=== PATIENT | male | born 1995 | race Two or more races ===

== ENCOUNTER → 2024-10-02 | Day surgery (SDC) | payer MEDICAID, SELFPAY ==
--- NOTE | 2024-09-29 06:45 | EKG_ITS ---
[facility] Test Date: 2024-09-29 Pat Name: WALTER LOBATO Department: Room: - Gender: Male Chief Clinical Dietitian: DUANE : 1995 Requested By: Albaro Headley Order Number: [id number] Reading MD: Albaro Headley Measurements Intervals [place] Rate: 95 P: 19 MI: 165 QRS: 51 QRSD: 94 T: 3 QT: 332 QTc: 417 Interpretive Statements SINUS RHYTHM WITH OCCASIONAL SUPRAVENTRICULAR PREMATURE COMPLEXES WARNING: DATA QUALITY MAY AFFECT INTERPRETATION No previous ECG available for comparison /store/S0/[id number]
[2024-09-29 09:00] VITALS: BMI 37.4
[2024-09-29 09:25] LABS: Collection Type, Urine Clean Catch; Squamous Epithelial Cell,Urine 0 /hpf (0-5)
[2024-09-29 10:04] LABS: Bilirubin,Urine Negative (Negative); Blood,Urine Trace (Negative); Clarity,Urine Clear (Clear/Hazy); Color,Urine Lt-Yellow (Lt Yel-Yel); Glucose, Urine Negative (Negative); Ketones,Urine Negative (Negative); Leukocyte Esterase,Urine Negative (Negative); Nitrite,Urine Negative (Negative); PH,Urine 5.5 (5.0-7.0); Protein,Urine Negative (Neg - Trace); RBC,Urine 2 /hpf (0-3); Urobilinogen,Urine Negative mg/dL (0.0-1.0); WBC,Urine 1 /hpf (0-5)
[2024-09-29 10:07] LABS: Basophils % (Auto) 0 % (0-2.5); Eosinophils # (Auto) 0.2 Thou/mm3 (0.0-0.5); Eosinophils % (Auto) 2 % (0-10); Hematocrit 46.3 % (41.0-53.0); Hemoglobin 16.3 g/dL (13.5-16.0); Immature Granulocytes % (Auto) 1 % (0-0); Immature Granulocytes Auto 0.05 Thou/mm3 (0.00-0.00); Lymphocytes # (Auto) 3.1 Thou/mm3 (1.0-4.8); Lymphocytes % (Auto) 30 % (10-50); Mean Corpuscular HGB Conc 35.2 g/dl (31.0-37.0); Mean Corpuscular Hemoglobin 29.8 pg (25.0-35.0); Mean Corpuscular Volume 85 fL (80-100); Monocytes % (Auto) 9 % (0-12); Neutrophils % (Auto) 59 % (37-80); Nucleated Red Blood Cell % 0 /100 WBC (0); Platelet Count 342 Thou/mm3 (140-440); RDW Standard Deviation 36.4 fL (35.1-43.9); Red Blood Count 5.47 Miln/mm3 (4.50-5.90); White Blood Count 10.3 Thou/mm3 (3.8-10.6)
[2024-09-29 10:14] LABS: Alanine Aminotransferase 28 U/L (10-49); Albumin, Serum 4.6 gm/dL (3.5-5.0); Albumin/Globulin Ratio 1.4 (1.2-2.2); Alkaline Phosphatase 113 U/L (46-116); Anion Gap 10 (7-16); Aspartate Amino Transferase 19 U/L (0-34); BUN/Creatinine Ratio 17 Ratio (12-20); Bilirubin,Total 0.7 mg/dL (0.3-1.2); Blood Urea Nitrogen 17 mg/dL (9-23); Calcium 10.2 mg/dL (8.3-10.6); Calcium (Corrected) 10.2 mg/dL (8.5-10.1); Carbon Dioxide 26.3 mMol/L (20.0-31.0); Chloride 102 mMol/L (98-107); Estimated Creatinine Clearance 146.1 mL/min (>60); Globulin 3.2 gm/dL (2.3-3.5); Glucose 153 mg/dL (74-106); Osmolality,Calculated 280 (275-295); Partial Thromboplastin Time 27.2 Seconds (22.0-36.0); Potassium 4.3 mMol/L (3.4-5.1); Prothrombin Time 10.9 Seconds (9.0-12.2); Sodium 138 mMol/L (136-145); Total Protein 7.8 gm/dL (5.7-8.2); eGFR > 60 See Note
[2024-10-02] VITALS (8 sets, daily range): BP systolic 131–155; BP diastolic 86–103; PULSE 85–101; RESP 13–21; TEMP 36.6–36.7; O2SAT 95–98; BMI 34.9
--- NOTE | 2024-10-02 11:01 | SUR.PREOP ---
Patient expressed gratitude for prayer before his procedure.
--- NOTE | 2024-10-02 12:16 | SUR.PHASEII ---
Pt. arrived to recovery via sylvesterrvikram, AAOx3, no c/o pain or nausea at this time, VSS, dressing to medial upper back CDI, no active bleeding or redness noted, blood glucose 192, report received from Lora REDDY and Dr. Dove.
--- NOTE | 2024-10-02 12:34 | SUR.PHASEII ---
Gave report on pt. s/p surgery to Blessing REDDY.
--- NOTE | 2024-10-02 12:34 | SUR.PHASEII ---
1234: Report received from Jesi REDDY, Pt. AAOx4, vitals stable, breathing unlabored, no complaint of pain or nausea, dressing to back CDI, no active bleed noted. Pt. meets discharge criteria, waiting for MD Headley to put in discharge instructions/order.
--- NOTE | 2024-10-02 13:00 | SUR.PHASEII ---
1300: Pt. AAOx4, vitals stable, breathing unlabored, no complaint of pain or nausea, dressing to back CDI, no active bleed noted, pt. tolerated sips of water well, pt. ambulated to wheelchair with steady gait and no assist, no complications. Gave discharge instructions to the pt. and his mom, both verbalized understanding and had no further questions. Pt. left with all personal belongings.
--- NOTE | 2024-11-30 11:05 | PD.SUROPNT ---
Date of Procedure 10/02/24 Pre Op Diagnosis Infected epidermal cyst back. Post Op Diagnosis Same. Procedure Excision of large infected epidermal cyst upper back on 10/02/2024 Findings This 29-year-old gentleman has had a large epidermal cyst on the back. This has been draining and is giving him pain. That is why he is brought the operating room for removal. Procedure Description This patient was interviewed in the preop area and the site and site was marked. Risk benefits and alternatives were discussed in detail with the patient and informed consent was obtained. After that the patient was taken to the operating room. General anesthesia was administered in a satisfactory manner. A timeout procedure was carried out. Patient was positioned in the prone position. The back was prepped and draped in usual manner. The mass is identified and then curvilinear elliptical incision is made around the mass. The epidermal cyst is dissected away from the skin. It was removed intact after circumferentially dissection. After the infected cyst is removed in this manner operative cavity is examined for fragments of the cyst and it was all cleared. The operative field is then thoroughly irrigated with saline solution. Hemostasis already achieved. Subcutaneous tissues approximated with 3-0 Vicryl and skin by 2-0 nylon interrupted stitches. Sterile dressing is applied. Patient tolerated procedure very well Anesthesia GETA Drains None. Implants None. Pathology / specimen Other (Epidermoid cyst back) Estimated Blood Loss 5 Condition Stable Disposition PACU Surgeon Albaro Headley MD Surgical Staff Operation Date: 10/02/24 12:15 Case Staff Anesthesiologist: Parker Dove
== END | disposition home or self-care (01) ==
PROVIDERS: Referring Provider Specialist; Visit Provider Specialist
PROC: (CPT 11403; principal; 2024-10-02 12:00)
DX: L72.0 Epidermal cyst (principal); E11.9 Type 2 diabetes mellitus without complications; Z94.0 Kidney transplant status; E66.01 Morbid (severe) obesity due to excess calories; Z79.84 Long term (current) use of oral hypoglycemic drugs; Z79.01 Long term (current) use of anticoagulants; Z01.810 Encounter for preprocedural cardiovascular examination; Z68.34 Body mass index [BMI] 34.0-34.9, adult
CPT/HCPCS: 11403; 36415; 80053; 81001; 85025; 85610; 85730; 87070; 87075; 87205; 93005; A4217; A4649; J0690; J2250; J2704; J3010; J3490; J0665